=== PATIENT | male | born 1955 | race Caucasian/White ===

== ENCOUNTER 2018-12-19 23:09 | Emergency (ER) | payer BC ==
[~2018-12-19] VITALS: Ht 180.3 cm; Wt 102.0 kg
[2018-12-20] MEDS ORDERED: OLANZAPINE 10 MG/VIAL IM ONE (01:45)
[2018-12-20 02:25] VITALS: BP 156/84
== END 2018-12-20 02:26 | disposition home or self-care (01) ==
LOC: ER 23:09
DX: S52.121A Displaced fracture of head of right radius, initial encounter for closed fracture (principal); I11.9 Hypertensive heart disease without heart failure
CPT/HCPCS: 29105; 73080; 73110; 73130; 99283; Z7610